=== PATIENT | male | born 1940 | race Caucasian/White ===

== ENCOUNTER 2020-10-05 16:36 | Inpatient (IN) | payer MEDICARE ==
[~2020-10-05] VITALS: Ht 175.3 cm; Wt 108.9 kg
--- NOTE | 2020-10-05 19:14 | NUR ---
ARRIVAL REPORT RECEIVED FROM [facility] OVER THE PHONE AND ONCE PATIENT ARRIVED. PT IS STABLE AT THIS TIME.
[2020-10-05] MEDS ORDERED: HEPARIN-D5W 20,000 UNIT/500 ML 500 ML IV SCH ×2 (20:30→23:00)
[2020-10-05] MEDS ORDERED: HEPARIN IV ONE ×2 (20:30→23:00)
[2020-10-05] MEDS ORDERED: TYLENOL PO PRN (20:30)
[2020-10-05] MEDS ORDERED: NITROLINGUAL TL PRN (20:30)
[2020-10-05] MEDS ORDERED: NORCO 5MG PO PRN (20:30)
--- NOTE | 2020-10-05 21:04 | DIREP ---
PROCEDURE:CHEST 1 VIEW COMPARISON:[facility], CR, XRAY CHEST SINGLE VW, 10/04/2020, 09:39 AM. INDICATIONS:SOB FINDINGS: LUNGS/PLEURA:Lordotic projection. No focal infiltrate or pleural effusion. CARDIAC:Prominent cardiac silhouette and normal pulmonary vascularity. MEDIASTINUM:Normal. BONES:Mild degenerative changes. OTHER:No additional findings. CONCLUSION:No acute cardiopulmonary process or significant change. Dictated by: Deborah Beverly MD on 10/05/2020 at 09:01 PM
--- NOTE | 2020-10-05 21:16 | PCM.HP ---
History of Present Illness Reason for Visit: Acute [place] History of Present Illness 80-year-old male with history of benign prostatic hypertrophy is being transferred from [facility] in [facility] for cardiac consultation and management. Patient presented to [facility] 2 days ago with weakness and low blood pressure. Patient was found to be uroseptic. Few days prior to presentation patient had a cystoscopy done. In the emergency room patient was found to have urinary tract infection. Start on IV antibiotic, Zosyn. The next day patient became very diaphoretic and short of breath, blood work patient had a troponin elevation to more than 4.0. Patient was given aspirin, Plavix and Lovenox. Requested transfer the patient to our medical facility for further cardiac work-up and management. Currently patient is feeling weak, tired and short of breath. Past Medical History Renal/: Benign Prostatic Enlarg. Past Surgical History: No pertinent hx Past Social History Smoke: No Alcohol: none Review of Systems Constitutional: Chills, Weakness Eyes: No: Pain, Vision change ENT: No: Ear pain, Ear discharge Respiratory: Shortness of breath; No: Cough, Dry Cardiovascular: No: Chest Pain, Palpitations Gastrointestinal: No: Nausea, Vomiting Genitourinary: Dysuria, Frequency Musculoskeletal: No: shoulder pain, arm pain Skin: No: Rash, Jaundice Neurological: No: Weakness, Incoordination Allergies: Coded Allergies: No Known Allergies (Unverified , 10/05/20) Exam Vital Signs Blood pressure 120/70, heart rate 80, respiratory rate 18, temperature 98.6 General Appearance: Alert, Oriented X3 HEENT: Atraumatic, PERRLA Respiratory: Other Cardiovascular: Regular rate, Normal S1, Normal S2 Abdominal: Normal bowel sounds, Soft, No tenderness Extremities: No clubbing, No cyanosis Skin: No lesions Neuro: Normal speech, Normal tone Psych/Mental Status: Mental status NL, Mood NL Assessment/Plan Assessment/Plan Problems: (1) NSTEMI (non-ST elevated myocardial infarction) ICD Code: I21.4 - Non-ST elevation (NSTEMI) myocardial infarction SNOMED: 96770071 (2) UTI (urinary tract infection) ICD Code: N39.0 - Urinary tract infection, site not specified SNOMED: 34039229 (3) SOB (shortness of breath) ICD Code: R06.02 - Shortness of breath SNOMED: 569828543 (4) BPH (benign prostatic hyperplasia) ICD Code: N40.0 - Benign prostatic hyperplasia without lower urinary tract symptoms SNOMED: 451953733 Plan Plan Admit Telemetry monitoring Investigator Cash Shortage consulted for evaluation further management 2D echo We will repeat troponin now, as per buffet waiter/waitress Check BNP Aspirin IV heparin drip IV antibiotic GI prophylaxis famotidine DVT prophylaxis Heparin Case discussed with patient, and patient family. PORSCHE REYNOLDS MD Oct 05, 2020 21:16
[2020-10-05 21:33] LABS: CALCIUM 8.4 mg/dL (8.4-10.5)
[2020-10-05 21:35] LABS: BASOPHIL # 0.1 10^3/uL (0.0-0.1); BASOPHIL % 0.5 % (0.0-0.2); EOSINOPHIL # 0.4 10^3/uL (0.0-0.2); EOSINOPHIL % 4.1 % (0.0-5.0); LYMPHOCYTES # 1.25 10^3/uL1 (1.0-4.8); LYMPHOCYTES % 13.4 % (24.0-44.0); MEAN CORP HGB 30.7 pg (26-34); MONOCYTES # 0.6 10^3/uL (0.3-0.8); MONOCYTES % 6.6 % (5.0-12.0); NEUTROPHIL # 7.1 10^3/uL (1.8-7.7); NEUTROPHILS % 75.4 % (41.0-85.0); PLATELET COUNT 138 10^3/uL (150-400); RED CELL DISTRIBUTION WIDTH 14.4 % (11.5-14.5)
--- NOTE | 2020-10-05 21:55 | NUR ---
HEPARIN INITIAL APPT 27.4 INITIATED HEPARIN AT 1000 UNITS/ 25 ML/HR. WITNESSED BY JUDITH LOJA.
[2020-10-05] MEDS: COLACE PO SCH (21:56)
[2020-10-05] MEDS: LIPITOR PO SCH (21:56)
[2020-10-05] MEDS ORDERED: NS 100ML 100 ML IV ONE (22:07)
[2020-10-05] MEDS ORDERED: NS 500ML 500 ML IV ONE (22:08)
--- NOTE | 2020-10-05 22:23 | NUR ---
STATUS CALLED FOR AN UPDATE ON THE PT, RECEIVED ORDERS FOR A Q4 TROPONIN AND TO NOTIFY HIM IF THE PT STARTS EXPERIENCING CHEST PAIN OR IF THE TROPONIN START TO TREND BACK UP. READ BACK AND VERIFIED.
[2020-10-05] MEDS: ZOSYN 3.375 GM 3.375 GM in NS 100ML 100 ML IV SCH (22:46)
[2020-10-06] VITALS (34 sets, daily range): BP systolic 80–183; BP diastolic 33–114
--- NOTE | 2020-10-06 00:34 | NUR ---
UPDATE NOTIFIED CHARGE NURSE PURVI WONG OF PATIENTS ELEVATED ST WAVE ON CARBON DIOXIDE OPERATOR.
--- NOTE | 2020-10-06 00:44 | NUR ---
STATUS NOTIFIED CHARGE NURSE Conchita WALKER RN AGAIN ABOUT PATIENTS ELEVATED ST WAVE ON THE BEAUTY SPECIALIST, CHARGE NURSE STATED THAT "IT IS NORMAL FOR HIM, HE HAS A HISTORY OF IT".
[2020-10-06] MEDS ORDERED: ALFU10TA4 PO (00:55)
--- NOTE | 2020-10-06 01:00 | PCM.EKG ---
[facility] Test Date: 2020-10-06 Test Time: 00:57:13 Pat Name: MARINA VALDES Department: Room: 331 A Gender: M Refractory Manager: TERESA : 1940 Requested By: PORSCHE REYNOLDS Order Number: [id number] Reading MD: Measurements Intervals [place] Rate: 55 P: 29 [place]: 166 QRS: 15 QRSD: 148 T: 43 QT: 439 QTc: 420 Interpretive Statements Sinus rhythm Right bundle branch block Inferior infarct, acute (RCA) Lateral leads are also involved Probable RV involvement, suggest recording right precordial leads Compared to ECG 10/05/2020 22:18:33 No significant changes Please click the below link to view image of tracing.
[2020-10-06] MEDS ORDERED: HEPARIN ONE (01:37)
[2020-10-06] MEDS ORDERED: SUBLIMAZE ONE (01:38)
[2020-10-06] MEDS ORDERED: VERSED ONE (01:38)
[2020-10-06] MEDS ORDERED: XYLOCAINE ONE (01:38)
--- NOTE | 2020-10-06 01:47 | NUR ---
STATUS PT TRANSPORTED OFF THE UNIT VIA BED TO RADIOLOGY RN.
[2020-10-06] MEDS ORDERED: NS 1000ML 1,000 ML ONE (02:06)
[2020-10-06] MEDS ORDERED: BENADRYL ONE (02:22)
[2020-10-06] MEDS ORDERED: SOLU-MEDROL ONE (02:27)
[2020-10-06] MEDS ORDERED: PEPCID ONE (02:38)
[2020-10-06] MEDS ORDERED: APRESOLINE ONE (02:39)
[2020-10-06] MEDS ORDERED: NARCAN ONE (02:41)
[2020-10-06] MEDS ORDERED: ROMAZICON IV ONE (02:42)
[2020-10-06] MEDS: ZOSYN 3.375 GM 3.375 GM in NS 100ML 100 ML IV SCH ×4 (03:30→22:30)
--- NOTE | 2020-10-06 04:10 | PCM.EKG ---
[facility] Test Date: 2020-10-06 Test Time: 04:07:36 Pat Name: MARINA VALDES Department: Room: 331 A Gender: M Sales Force Administrator: TERESA : 1940 Requested By: PORSCHE REYNOLDS Order Number: [id number] Reading MD: Measurements Intervals [place] Rate: 56 P: 48 [place]: 167 QRS: -19 QRSD: 154 T: 39 QT: 432 QTc: 417 Interpretive Statements Sinus rhythm IVCD, consider atypical RBBB Compared to ECG 10/06/2020 00:57:13 Myocardial infarct finding no longer present Please click the below link to view image of tracing.
--- NOTE | 2020-10-06 04:41 | CCRH ---
DATE OF SERVICE: 10/06/2020 DICTATOR NAME: YANELI ZAPATA DO INDICATION: Acute ST-elevation myocardial infarction. This is a 80-year-old male who was initially transferred to the hospital from an outside facility with an acute aas-YF-fxtkvlbyc myocardial infarction. Initial EKG on presentation revealed normal sinus rhythm with a right bundle branch block and nonspecific ST-T wave changes. ACS protocol was initiated. During the course of his hospital stay, he became progressively short of breath and a repeat ECG done showed dynamic EKG changes with ST elevations in the inferior leads with reciprocal ST depressions in the anteroseptal leads. A diagnosis of acute ST-elevation myocardial infarction was made and the patient was taken to the cardiac catheterization suite for emergent left heart catheterization. Informed consents were obtained. PROCEDURES PERFORMED: 1. 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 This is an 0.5 mm caliber vessel which is extremely small and unamendable to stenting or balloon angioplasty. 2. Selective coronary angiography. 3. Left ventriculography. 4. Hemostasis established using a 6-Tajik Angio-Seal. PROCEDURAL DETAILS: Access was obtained using a 4-Tajik micropuncture kit to cannulate the right common femoral artery. The 4-Tajik sheath was then upsized to a 6-Tajik regular short sheath. Diagnostic angiography was carried out using a José Miguel right guide to engage the RCA. The RCA itself was noted to be with mild luminal irregularities. It bifurcates distally to a very small caliber right posterior lateral artery and a very small caliber right posterior descending artery. Significant haziness was visualized in the very distal right posterior descending artery suggestive of an acute thrombus. The very distal RPDA is noted to be a 0.5 mm caliber vessel in its maximum diameter. This is an extremely small caliber vessel that is unamendable to stenting or balloon angioplasty. The proximal and mid segments of the RPDA were noted to be with mild luminal irregularities. The José Miguel right catheter was then exchanged for a José Miguel left diagnostic catheter, which was used to engage the left main. Angiography revealed that the left main was angiographically normal. It bifurcates into a left anterior descending artery and a left circumflex artery. The left anterior descending artery is noted to have mild luminal irregularities. It runs in the interventricular groove, wrapping around the apex to form a type 3 LAD. It gives off 3 diagonal branches that are noted to have mild luminal irregularities. The left circumflex artery is a codominant vessel with mild luminal irregularities. It gives off 4 obtuse marginal branches that are all noted to have mild luminal irregularities. The José Miguel left catheter was then taken out and exchanged for a pigtail catheter, which was used to cross the aortic valve into the left ventricle. Left ventriculography was performed. LVEF was noted to be 45-50% with inferior apical hypokinesis. LVEDP was noted to be 10. Upon pullback of the pigtail catheter, there was no gradient across the aortic valve. The pigtail catheter was then taken out and hemostasis was established using a 6-Tajik Angio-Seal. The patient left the laborer construction or leak gang in stable condition. There were no complications. IMPRESSION: 1. 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 This is unamendable to stenting or balloon angioplasty given the very small size of the vessel. Medical management is therefore recommended. 2. Selective coronary angiography. 3. Left ventriculography. 4. Left ventricular ejection fraction of 45-50% with inferior apical hypokinesis. 5. Left ventricular end-diastolic pressure of 10. 6. Hemostasis established using a 6-Tajik Angio-Seal. RECOMMENDATIONS: No coronary intervention is necessary at this time. Aggressive medication management is certainly recommended. He will be started on dual antiplatelet therapy as well as statin therapy. Heparin drip will be kept running for the next 10-12 hours. Heparin protocol has been initiated. A 2D echo will be obtained to further evaluate his left ventricular ejection fraction and structural integrity of his heart. No further cardiac invasive workup is necessary at this time. Tate JONES D.O. DR: DENIS DE PAZ: [id number] RECEIPT: [id number] EROS
[2020-10-06 06:10] LABS: BILIRUBIN,URINE NEGATIVE (NEGATIVE); UA COLOR YELLOW; UROBILINOGEN,URINE 0.2 E.U./dL (0.2)
[2020-10-06 06:29] LABS: BASOPHIL % 0.2 % (0.0-0.2); EOSINOPHIL # 0.1 10^3/uL (0.0-0.2); LYMPHOCYTES # 0.55 10^3/uL1 (1.0-4.8); LYMPHOCYTES % 5.7 % (24.0-44.0); MEAN CORP HGB 30.3 pg (26-34); MONOCYTES # 0.3 10^3/uL (0.3-0.8); MONOCYTES % 2.8 % (5.0-12.0); NEUTROPHIL # 8.7 10^3/uL (1.8-7.7); NEUTROPHILS % 90.3 % (41.0-85.0); PLATELET COUNT 148 10^3/uL (150-400); RED CELL DISTRIBUTION WIDTH 14.5 % (11.5-14.5)
[2020-10-06 06:47] LABS: CALCIUM 8.7 mg/dL (8.4-10.5); CARBON DIOXIDE 23.8 mmol/L (20.0-32)
[2020-10-06 07:11] LABS: LYMPHOCYTE 2 % (25-36); SEGMENTED NEUTROPHILS 94 % (31-76)
[2020-10-06 07:12] LABS: BASOPHIL 1 % (0-2); EOSINOPHIL 1 % (1-4); MONOCYTE 2 % (3-9)
--- NOTE | 2020-10-06 08:36 | PCM.EKG ---
[facility] Test Date: 2020-10-06 Test Time: 08:33:21 Pat Name: MARINA VALDES Department: Room: 331 A Gender: M Manager Activities: ED : 1940 Requested By: PORSCHE REYNOLDS Order Number: [id number] Reading MD: Measurements Intervals [place] Rate: 39 P: 54 [place]: 171 QRS: -26 QRSD: 152 T: 10 QT: 490 QTc: 395 Interpretive Statements Sinus bradycardia Right bundle branch block Compared to ECG 10/06/2020 04:07:36 Sinus rhythm no longer present Please click the below link to view image of tracing.
[2020-10-06] MEDS: COLACE PO SCH ×2 (09:00→20:54)
[2020-10-06] MEDS ORDERED: ASPIRIN EC PO SCH (09:00)
[2020-10-06] MEDS: ASPIRIN EC PO SCH (09:47)
[2020-10-06] MEDS: PEPCID IV SCH ×2 (09:47→20:54)
[2020-10-06] MEDS: PLAVIX PO SCH (09:47)
--- NOTE | 2020-10-06 10:15 | NUR ---
TRANSFER TO ICU PATIENT TRANSFERRED TO ICU TO MONITOR BRADYCARDIA PER DR. STILL ORDER. REPORT GIVEN TO ADRIANA LOJA. RELINQUISHED CARE OF PATIENT AT THIS TIME.
--- NOTE | 2020-10-06 11:54 | PRM.PN ---
Subjective Subjective Date: Oct 06, 2020 Time: 09:00 Subjective Patient appears lethargic, had heart cath earlier this morning, apparently patient was more lethargic and was given Narcan as per RN. Patient heart rate is bradycardic with heart rate as low as 38. RN sent EKG to supervisor park workers. To review. Patient skin is cool. Will transfer the patient to ICU for close monitoring. VTE VTE Risk Total Score: 3 VTE Risk Score VTE Risk: Score 0-1 = Low Risk (Aggressive mobilization; early ambulation; no VTE prophylaxis required) Score 2: Moderate Risk (Intermittent/Pneumatic Compression Device OR Lovenox/Heparin/Coumadin) Score 3-4: High Risk (Intermittent/Pneumatic Compression Device AND Lovenox/Heparin/Coumadin) Score > or =5: Highest Risk (Intermittent/Pneumatic Compression Device AND Lovenox/Heparin/Coumadin) Antico:Hep/LMWH/Coum/Xarelto: Yes Mechanical device ordered: Yes Review of Systems Constitutional: Chills, Weakness Eyes: No: Pain, Vision change ENT: No: Ear pain, Ear discharge Respiratory: Shortness of breath; No: Cough, Dry Cardiovascular: No: Chest Pain, Palpitations Gastrointestinal: No: Nausea, Vomiting Genitourinary: Dysuria, Frequency Musculoskeletal: No: shoulder pain, arm pain Skin: No: Rash, Jaundice Neurological: No: Weakness, Incoordination Allergies: Coded Allergies: No Known Allergies (Unverified , 10/05/20) Scheduled Alfuzosin Hcl (Alfuzosin Hcl), 2 TAB PO DAILY, (Reported) Objective Vitals and I/O Vital Sign - Last 24 Hours 10/05/20 10/05/20 10/06/20 10/06/20 22:00 23:40 00:20 09:00 Pulse 64 38 Resp 18 18 Pulse Ox 95 98 O2 Delivery Nasal Cannula Nasal Cannula Nasal Cannula Nasal Cannula O2 Flow Rate 2.00 2.00 2.00 FiO2 28 10/06/20 10/06/20 10/06/20 10/06/20 10:30 10:40 10:45 11:00 Pulse 42 40 42 Resp 22 18 17 B/P (MAP) 161/90 (113) 159/83 (108) 169/94 (119) Pulse Ox 100 100 98 O2 Delivery Room Air O2 Flow Rate 3.00 10/06/20 11:15 Temp 97.8 Pulse 40 Resp 15 B/P (MAP) 178/96 (123) Pulse Ox 99 General: Other (Lethargic) HEENT: Atraumatic, PERRLA Lungs: Other Heart: Other (Bradycardic) Abdomen: Normal bowel sounds, Soft, No tenderness Extremities: No clubbing, No cyanosis Neuro: Normal speech, Normal tone Psych/Mental Status: Mental status NL, Mood NL All Results(Lab/Rad) Laboratory Tests Test 10/05/20 20:44 10/06/20 01:15 10/06/20 05:30 10/06/20 05:52 White Blood Count 9.4 10^3/uL 9.7 10^3/uL Red Blood Count 3.68 10^6/uL 3.80 10^6/uL Hemoglobin 11.3 g/dL 11.5 g/dL Hematocrit 34.2 % 35.1 % Mean Corpuscular Volume 92.9 fL 92.4 fL Mean Corpuscular Hemoglobin 30.7 pg 30.3 pg Mean Corpuscular Hemoglobin Concent 33.0 g/dL 32.8 g/dL Red Cell Distribution Width 14.4 % 14.5 % Platelet Count 138 10^3/uL 148 10^3/uL Mean Platelet Volume 11.4 fL 11.5 fL Neutrophils (%) (Auto) 75.4 % 90.3 % Lymphocytes (%) (Auto) 13.4 % 5.7 % Monocytes (%) (Auto) 6.6 % 2.8 % Neutrophils # (Auto) 7.1 10^3/uL 8.7 10^3/uL Lymphocytes # (Auto) 1.25 10^3/uL1 0.55 10^3/uL1 Monocytes # (Auto) 0.6 10^3/uL 0.3 10^3/uL Absolute Immature Granulocyte (auto 0.06 10^3 u/L 0.05 10^3 u/L Absolute Eosinophils (auto) 0.4 10^3/uL 0.1 10^3/uL Immature Granulocytes % 0.60 % 0.50 % Eosinophils % 4.1 % 1.0 % Basophils % 0.5 % 0.2 % Basophils # 0.1 10^3/uL 0.0 10^3/uL Prothrombin Time 10.7 SEC Prothrombin Time INR (Non-Therap) 1.0 Activated Partial Thromboplast Time 27.4 SEC 35.8 SEC Sodium Level 140 mmol/L 141 mmol/L Potassium Level 4.1 mmol/L 3.9 mmol/L Chloride Level 108.0 mmol/L 108.0 mmol/L Carbon Dioxide Level 24.0 mmol/L 23.8 mmol/L Anion Gap 12.1 13.1 Blood Urea Nitrogen 23 mg/dL 21 mg/dL Creatinine 1.29 mg/dL 1.19 mg/dL Estimated GFR () 65.2 71.5 Est GFR (CKD-EPI)(Non-Afr [place] Citizen) 53.9 59.1 BUN/Creatinine Ratio 17.0 17.0 Glucose Level 124 mg/dL 139 mg/dL Calcium Level 8.4 mg/dL 8.7 mg/dL Total Bilirubin 0.6 mg/dL 0.6 mg/dL Aspartate Amino Transf (AST/SGOT) 43 U/L 38 U/L Alanine Aminotransferase (ALT/SGPT) 34 U/L 36 U/L Alkaline Phosphatase 74 U/L 74 U/L Troponin I 1.63 ng/mL 1.33 ng/mL Pro-B-Type Natriuretic Peptide 1424 pg/mL Total Protein 6.2 g/dL 6.4 g/dL Albumin 2.9 g/dL 3.0 g/dL Globulin 3.3 3.4 Albumin/Globulin Ratio 0.878 0.882 Total Creatine Kinase 195 U/L 191 U/L Creatine Kinase MB 1.6 ng/mL 1.7 ng/mL Urine Collection Type RANDOM Urine Color YELLOW Urine Appearance CLEAR Urine Bilirubin NEGATIVE Urine Ketones NEGATIVE Urine Specific [place] 1.010 Urine pH 6.5 Urine Protein NEGATIVE Urine Urobilinogen 0.2 E.U./dL Urine Nitrate NEGATIVE Urine Leukocyte Esterase MODERATE Urine Glucose (Auto)(UA) NEGATIVE Urine Blood MODERATE Urine RBC 10-25 RBC/HPF Urine WBC 10-25 WBC/HPF Urine Bacteria FEW Test 10/06/20 06:37 10/06/20 08:05 Segmented Neutrophils 94 % Lymphocytes 2 % Monocytes 2 % Absolute Eosinophils (Manual) 1 % Basophils 1 % Platelet Estimate SLIGHTLY DECREASED Platelet Morphology NORMAL Activated Partial Thromboplast Time 30.8 SEC Total Creatine Kinase 169 U/L Creatine Kinase MB 1.5 ng/mL Current Medications Medications (Trade) Dose Ordered Sig/Jhon Route PRN Reason Start Time Stop Time Status Last Admin Dose Admin Heparin Sodium (Porcine) (Heparin) 5,000 unit OT ONCE IV 10/05/20 20:30 10/05/20 20:48 DC 10/05/20 21:56 Heparin Sodium/ Dextrose 500 ml @ 0 mls/hr TITRATE IV 10/05/20 20:30 10/05/20 23:35 DC 10/05/20 21:55 Nitroglycerin (Nitrolingual) 1 sprays Q5M PRN TL CHEST PAIN 10/05/20 20:30 11/04/20 20:29 Aspirin (Aspirin Ec) 325 mg DAILY PO 10/06/20 09:00 10/06/20 03:33 DC Atorvastatin Calcium (Lipitor) 80 mg HS PO 10/05/20 21:00 11/04/20 20:59 10/05/20 21:56 Docusate Sodium (Colace) 100 mg BID PO 10/05/20 21:00 11/04/20 20:59 Acetaminophen (Tylenol) 1,000 mg Q6H PRN PO PAIN 1 - 3 10/05/20 20:30 11/04/20 20:29 Acetaminophen/ Hydrocodone Bitart ([place] 5mg) 1 ea Q6 PRN PO PAIN 4 - 6 10/05/20 20:30 11/04/20 20:29 Atropine Sulfate (Atropine Sulfate) 1 mg PRN PRN IV HR<45/min 10/05/20 20:30 11/04/20 20:29 Piperacillin Sod/ Tazobactam Sod 3.375 gm/Sodium Chloride 100 ml @ 100 mls/hr Q6H IV 10/05/20 21:30 11/04/20 21:29 10/06/20 09:30 Famotidine (Pepcid) 20 mg BID IV 10/06/20 09:00 11/05/20 08:59 10/06/20 09:47 Sodium Chloride 100 ml @ ud STK-MED ONCE IV 10/05/20 22:07 10/05/20 22:07 DC Sodium Chloride 500 ml @ ud STK-MED ONCE IV 10/05/20 22:08 10/05/20 22:08 DC Heparin Sodium (Porcine) (Heparin) 5,000 unit OT ONCE IV 10/05/20 23:00 10/05/20 23:34 DC Heparin Sodium/ Dextrose 500 ml @ 0 mls/hr TITRATE IV 10/05/20 23:00 11/04/20 22:59 Heparin Sodium/ Sodium Chloride 1,500 ml @ ud STK-MED ONCE IV 10/06/20 01:37 10/06/20 01:38 DC Heparin Sodium (Porcine) (Heparin) 5,000 unit STK-MED ONCE .ROUTE 10/06/20 01:37 10/06/20 01:38 DC Fentanyl Citrate (Sublimaze) 50 mcg STK-MED ONCE .ROUTE 10/06/20 01:38 10/06/20 01:38 DC Lidocaine HCl (Xylocaine) 20 mg STK-MED ONCE .ROUTE 10/06/20 01:38 10/06/20 01:38 DC Sodium Chloride 1,000 ml @ ud STK-MED ONCE .ROUTE 10/06/20 02:06 10/06/20 02:06 DC Diphenhydramine HCl (Benadryl) 50 mg STK-MED ONCE .ROUTE 10/06/20 02:22 10/06/20 02:23 DC Methylprednisolone Sodium Succinate (Solu-Medrol) 125 mg STK-MED ONCE .ROUTE 10/06/20 02:27 10/06/20 02:27 DC Famotidine (Pepcid) 20 mg STK-MED ONCE .ROUTE 10/06/20 02:38 10/06/20 02:38 DC Hydralazine HCl (Apresoline) 20 mg STK-MED ONCE .ROUTE 10/06/20 02:39 10/06/20 02:40 DC Naloxone HCl (Narcan) 0.4 mg STK-MED ONCE .ROUTE 10/06/20 02:41 10/06/20 02:41 DC Flumazenil (Romazicon) 0.1 mg STK-MED ONCE IV 10/06/20 02:42 10/06/20 02:42 DC Sodium Chloride 1,000 ml @ 30 mls/hr Q24H IV 10/06/20 03:30 11/05/20 03:29 Clopidogrel Bisulfate (Plavix) 75 mg DAILY PO 10/06/20 09:00 11/05/20 08:59 10/06/20 09:47 Aspirin (Aspirin Ec) 81 mg DAILY PO 10/06/20 09:00 11/05/20 08:59 10/06/20 09:47 Assessment/Plan Assessment/Plan Problems: (1) Bradycardia ICD Code: R00.1 - Bradycardia, unspecified SNOMED: 38397045 (2) NSTEMI (non-ST elevated myocardial infarction) ICD Code: I21.4 - Non-ST elevation (NSTEMI) myocardial infarction SNOMED: 82336692 (3) UTI (urinary tract infection) ICD Code: N39.0 - Urinary tract infection, site not specified SNOMED: 79312216 (4) BPH (benign prostatic hyperplasia) ICD Code: N40.0 - Benign prostatic hyperplasia without lower urinary tract symptoms SNOMED: 730624035 Plan Patient had heart cath this morning, assessment and recommendation as per supervisor park workers 1. 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 This is unamendable to stenting or balloon angioplasty given the very small size of the vessel. Medical management is therefore recommended. 2. Selective coronary angiography. 3. Left ventriculography. 4. Left ventricular ejection fraction of 45-50% with inferior apical hypokinesis. 5. Left ventricular end-diastolic pressure of 10. 6. Hemostasis established using a 6-Kinyarwanda Angio-Seal. RECOMMENDATIONS: No coronary intervention is necessary at this time. Aggressive medication management is certainly recommended. He will be started on dual antiplatelet therapy as well as statin therapy. Heparin drip will be kept running for the next 10-12 hours. Heparin protocol has been initiated. A 2D echo will be obtained to further evaluate his left ventricular ejection fraction and structural integrity of his heart. No further cardiac invasive workup is necessary at this time. Patient is lethargic post heart cath, bradycardic with heart rates in the high 30s. We will transfer the patient to ICU for close monitoring. Continue IV antibiotic, awaiting culture results PORSCHE REYNOLDS MD Oct 06, 2020 11:53
--- NOTE | 2020-10-06 12:19 | PCM.EKG ---
[facility] Test Date: 2020-10-06 Test Time: 12:15:01 Pat Name: MARINA VALDES Department: Room: ICU4 Gender: M [employer] Functional Analyst: ED : 1940 Requested By: PORSCHE REYNOLDS Order Number: [id number] Reading MD: Measurements Intervals [place] Rate: 41 P: 59 [place]: 93 QRS: -25 QRSD: 148 T: 21 QT: 494 QTc: 408 Interpretive Statements Sinus bradycardia Short [place] interval Right bundle branch block Compared to ECG 10/06/2020 08:33:21 Short [place] interval now present Please click the below link to view image of tracing.
--- NOTE | 2020-10-06 13:00 | NUR ---
NOTIFIED DR. ZAPATA OF HR 41 AND EKG NEW ORDERS RECEIVED FOR ATROPINE 0.5MG IV STAT. CONTINUE HEPARIN DRIP UNTIL 1800. RBTO.
[2020-10-06] MEDS ORDERED: ATROPINE SULFATE IV STA ×2 (13:20→15:36)
--- NOTE | 2020-10-06 15:09 | NUR ---
NOTIFIED DR. ZAPATA OF HR 43-45 AND BP 169/89 NEW ORDERS RECEIVED FOR ATROPINE 0.5 MG IV STAT AND HYDRALAZINE 20MG IV STAT. RBTO.
--- NOTE | 2020-10-06 15:13 | PCM.EKG ---
[facility] Test Date: 2020-10-05 Test Time: 22:18:33 Pat Name: MARINA VALDES Department: Room: ICU4 A Gender: M Hasher Machine Operator: TERESA : 1940 Requested By: YANELI ZAPATA Order Number: [id number] Reading MD: Measurements Intervals [place] Rate: 55 P: 39 [place]: 167 QRS: -31 QRSD: 145 T: 13 QT: 421 QTc: 403 Interpretive Statements Sinus rhythm Right bundle branch block Inferior infarct, old No previous ECG available for comparison Please click the below link to view image of tracing.
[2020-10-06] MEDS ORDERED: APRESOLINE IV STA (15:36)
[2020-10-06] MEDS: NS 1000ML 1,000 ML IV SCH (16:52)
[2020-10-06] MEDS: ATROPINE SULFATE IV PRN (19:15)
--- NOTE | 2020-10-06 20:31 | CNH ---
DATE OF CONSULTATION: 10/06/2020 DICTATOR NAME: YANELI ZAPATA DO REASON FOR CONSULTATION: Acute non-ST elevation myocardial infarction. HISTORY OF PRESENT ILLNESS: This is a 80-year-old male who was transferred from [facility] in [place], [place] with an acute non-ST elevation myocardial infarction. The patient apparently presented at [facility] 2 days ago with generalized weakness and hypotension. He was noted to be uroseptic and was treated with antibiotics and subsequently underwent a cystoscopy. He became progressively short of breath that warranted cardiac workup at the outside hospital with a troponin leak of 4.0. In view of these, he was transferred over to [facility] for cardiac evaluation and management. He denies any chest pain. Upon presentation to [facility], EKG shows normal sinus rhythm with a right bundle branch block and nonspecific ST-T wave changes. Initial troponin was 1.63. A consultation was placed to cardiology for evaluation. PAST MEDICAL HISTORY: Significant for BPH. PAST SURGICAL HISTORY: Recent cystoscopy done at [facility]. ALLERGIES: He has no known drug allergies. MEDICATIONS: He does not take any medications at home. SOCIAL HISTORY: He denies tobacco use, denies illicit drug use, denies alcohol use. FAMILY HISTORY: He denies any family history of premature coronary artery disease or sudden cardiac . REVIEW OF SYSTEMS: As per HPI and as per previous records. All systems are reviewed and negative for interval change. PHYSICAL EXAMINATION: VITAL SIGNS: Pulse is 64, respiratory rate is 18, pulse oximetry is 95% on 2 liters. GENERAL: He is in no apparent distress, alert and oriented x3. HEENT: Normocephalic, atraumatic. Extraocular muscles intact. Pupils equally round, reactive to light and accommodation. CARDIAC: S1, S2. No gallops, murmurs, rubs, or clicks. LUNGS: Clear to auscultation bilaterally. No wheezing, rhonchi or rales. ABDOMEN: Soft, nontender, nondistended. Positive bowel sounds in all 4 quadrants. EXTREMITIES: No cyanosis, no clubbing, no edema, +2 pedal pulses palpable bilaterally. NEUROLOGIC: No neurological deficits. Sensation is intact. IMPRESSION: 1. Acute non-ST elevation myocardial infarction. 2. Recent diagnosis of urosepsis at an outside hospital. 3. Shortness of breath. 4. Benign prostatic hypertrophy. RECOMMENDATIONS: This is a 80-year-old male who was transferred from [facility] to [facility] with a diagnosis of acute non-ST elevation myocardial infarction. He initially presented to the outside hospital with generalized weakness and hypotension and was noted to have urosepsis, which was subsequently treated with antibiotics. He became short of breath and cardiac workup was initiated. Troponin at the outside hospital was noted to be 4.0 and so he was transferred over to [facility] for evaluation by cardiology. Repeat troponin here at [facility] was noted to be 1.63. EKG shows normal sinus rhythm with a right bundle branch block and nonspecific ST-T wave changes. The patient denies any angina. He only complains of occasional shortness of breath. I would recommend to trend his troponins q. 4 hours with EKGs. He will be started on heparin drip with a loading dose as well as given loading dose of aspirin 325 mg. A 2D echo will be ordered to evaluate his left ventricular ejection fraction and structural integrity of his heart. Eventually, he will be taken to the cardiac catheterization suite for left heart catheterization to rule out obstructive CAD. Continue to trend troponins. Further recommendations will be made based on his overall clinical course. Tate JONES D.O. DR: KASI TIPayam: [id number] RECEIPT: [id number]
--- NOTE | 2020-10-06 20:53 | PCM.EKG ---
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
[2020-10-06] MEDS: LIPITOR PO SCH (20:54)
--- NOTE | 2020-10-06 21:48 | PRM.PN ---
Subjective Subjective Date: Oct 06, 2020 Time: 21:37 Subjective Patient resting comfortably No chest pain, SOB or palpitations EKG: NSR with RBBB Review of Systems Constitutional: Chills, Weakness Eyes: No: Pain, Vision change ENT: No: Ear pain, Ear discharge Respiratory: No: Cough, Dry, Shortness of breath, SOB with excertion, Wheezing, Hemoptysis, Pleuritic Pain, Sputum, Wheezing, Other Cardiovascular: No: Chest Pain, Palpitations Gastrointestinal: No: Nausea, Vomiting Genitourinary: Dysuria, Frequency Musculoskeletal: No: shoulder pain, arm pain Skin: No: Rash, Jaundice Neurological: No: Weakness, Incoordination Allergies: Coded Allergies: No Known Allergies (Unverified , 10/05/20) Scheduled Alfuzosin Hcl (Alfuzosin Hcl), 2 TAB PO DAILY, (Reported) Objective Vitals and I/O Vital Sign - Last 24 Hours 10/05/20 10/05/20 10/06/20 10/06/20 22:00 23:40 00:20 09:00 Pulse 64 38 Resp 18 18 Pulse Ox 95 98 O2 Delivery Nasal Cannula Nasal Cannula Nasal Cannula Nasal Cannula O2 Flow Rate 2.00 2.00 2.00 FiO2 28 10/06/20 10/06/20 10/06/20 10/06/20 10:30 10:40 10:45 11:00 Pulse 42 40 42 Resp 22 18 17 B/P (MAP) 161/90 (113) 159/83 (108) 169/94 (119) Pulse Ox 100 100 98 O2 Delivery Room Air O2 Flow Rate 3.00 10/06/20 10/06/20 10/06/20 10/06/20 11:15 12:30 12:45 13:09 Temp 97.8 Pulse 40 33 40 44 Resp 15 20 20 21 B/P (MAP) 178/96 (123) 168/82 (110) 150/84 (106) 124/63 (83) Pulse Ox 99 99 99 97 10/06/20 10/06/20 10/06/20 10/06/20 13:17 13:30 13:45 14:04 Pulse 45 37 46 47 Resp 17 19 18 19 B/P (MAP) 129/91 (104) 179/114 (135) 159/88 (111) Pulse Ox 98 98 96 96 10/06/20 10/06/20 10/06/20 10/06/20 14:15 14:30 14:45 15:01 B/P (MAP) 174/80 (111) 178/99 (125) 179/72 (107) 169/89 (115) Pulse Ox 97 95 98 99 10/06/20 10/06/20 10/06/20 10/06/20 15:36 15:46 16:00 16:01 Pulse 42 41 57 Resp 16 20 B/P (MAP) 183/103 183/101 (128) 138/75 (96) Pulse Ox 96 97 O2 Delivery Room Air O2 Flow Rate 3.00 10/06/20 10/06/20 10/06/20 10/06/20 16:15 16:16 16:30 16:33 Pulse 56 55 53 Resp 20 21 15 B/P (MAP) 128/75 (92) 123/66 (85) Pulse Ox 97 97 97 99 10/06/20 10/06/20 10/06/20 10/06/20 16:47 17:01 17:17 17:46 Temp 98.2 Pulse 50 48 61 44 Resp 18 20 24 23 B/P (MAP) 131/50 (77) 105/51 (69) Pulse Ox 98 97 95 98 10/06/20 10/06/20 10/06/20 10/06/20 18:00 18:16 18:17 18:24 Pulse 48 47 42 45 Resp 23 20 18 24 B/P (MAP) 108/42 (64) 95/46 (62) 95/44 (61) Pulse Ox 97 98 98 98 O2 Delivery Nasal Cannula O2 Flow Rate 2.00 FiO2 28 General: Alert, Oriented X3, Other (Lethargic) HEENT: Atraumatic, PERRLA Neck: Supple Lungs: Clear to auscultation, Other Heart: Regular rate, Normal S1, Normal S2, Other (Bradycardic) Abdomen: Normal bowel sounds, Soft, No tenderness Extremities: No clubbing, No cyanosis Skin: No rashes Neuro: Normal speech, Normal tone Psych/Mental Status: Mental status NL, Mood NL All Results(Lab/Rad) Laboratory Tests Test 10/05/20 20:44 10/06/20 01:15 10/06/20 05:30 10/06/20 05:52 White Blood Count 9.4 10^3/uL 9.7 10^3/uL Red Blood Count 3.68 10^6/uL 3.80 10^6/uL Hemoglobin 11.3 g/dL 11.5 g/dL Hematocrit 34.2 % 35.1 % Mean Corpuscular Volume 92.9 fL 92.4 fL Mean Corpuscular Hemoglobin 30.7 pg 30.3 pg Mean Corpuscular Hemoglobin Concent 33.0 g/dL 32.8 g/dL Red Cell Distribution Width 14.4 % 14.5 % Platelet Count 138 10^3/uL 148 10^3/uL Mean Platelet Volume 11.4 fL 11.5 fL Neutrophils (%) (Auto) 75.4 % 90.3 % Lymphocytes (%) (Auto) 13.4 % 5.7 % Monocytes (%) (Auto) 6.6 % 2.8 % Neutrophils # (Auto) 7.1 10^3/uL 8.7 10^3/uL Lymphocytes # (Auto) 1.25 10^3/uL1 0.55 10^3/uL1 Monocytes # (Auto) 0.6 10^3/uL 0.3 10^3/uL Absolute Immature Granulocyte (auto 0.06 10^3 u/L 0.05 10^3 u/L Absolute Eosinophils (auto) 0.4 10^3/uL 0.1 10^3/uL Immature Granulocytes % 0.60 % 0.50 % Eosinophils % 4.1 % 1.0 % Basophils % 0.5 % 0.2 % Basophils # 0.1 10^3/uL 0.0 10^3/uL Prothrombin Time 10.7 SEC Prothrombin Time INR (Non-Therap) 1.0 Activated Partial Thromboplast Time 27.4 SEC 35.8 SEC Sodium Level 140 mmol/L 141 mmol/L Potassium Level 4.1 mmol/L 3.9 mmol/L Chloride Level 108.0 mmol/L 108.0 mmol/L Carbon Dioxide Level 24.0 mmol/L 23.8 mmol/L Anion Gap 12.1 13.1 Blood Urea Nitrogen 23 mg/dL 21 mg/dL Creatinine 1.29 mg/dL 1.19 mg/dL Estimated GFR () 65.2 71.5 Est GFR (CKD-EPI)(Non-Afr [place]) 53.9 59.1 BUN/Creatinine Ratio 17.0 17.0 Glucose Level 124 mg/dL 139 mg/dL Calcium Level 8.4 mg/dL 8.7 mg/dL Total Bilirubin 0.6 mg/dL 0.6 mg/dL Aspartate Amino Transf (AST/SGOT) 43 U/L 38 U/L Alanine Aminotransferase (ALT/SGPT) 34 U/L 36 U/L Alkaline Phosphatase 74 U/L 74 U/L Troponin I 1.63 ng/mL 1.33 ng/mL Pro-B-Type Natriuretic Peptide 1424 pg/mL Total Protein 6.2 g/dL 6.4 g/dL Albumin 2.9 g/dL 3.0 g/dL Globulin 3.3 3.4 Albumin/Globulin Ratio 0.878 0.882 Total Creatine Kinase 195 U/L 191 U/L Creatine Kinase MB 1.6 ng/mL 1.7 ng/mL Urine Collection Type RANDOM Urine Color YELLOW Urine Appearance CLEAR Urine Bilirubin NEGATIVE Urine Ketones NEGATIVE Urine Specific [place] 1.010 Urine pH 6.5 Urine Protein NEGATIVE Urine Urobilinogen 0.2 E.U./dL Urine Nitrate NEGATIVE Urine Leukocyte Esterase MODERATE Urine Glucose (Auto)(UA) NEGATIVE Urine Blood MODERATE Urine RBC 10-25 RBC/HPF Urine WBC 10-25 WBC/HPF Urine Bacteria FEW Test 10/06/20 06:37 10/06/20 08:05 Segmented Neutrophils 94 % Lymphocytes 2 % Monocytes 2 % Absolute Eosinophils (Manual) 1 % Basophils 1 % Platelet Estimate SLIGHTLY DECREASED Platelet Morphology NORMAL Activated Partial Thromboplast Time 30.8 SEC Total Creatine Kinase 169 U/L Creatine Kinase MB 1.5 ng/mL Current Medications Medications (Trade) Dose Ordered Sig/Jhon Route PRN Reason Start Time Stop Time Status Last Admin Dose Admin Heparin Sodium (Porcine) (Heparin) 5,000 unit OT ONCE IV 10/05/20 20:30 10/05/20 20:48 DC 10/05/20 21:56 Heparin Sodium/ Dextrose 500 ml @ 0 mls/hr TITRATE IV 10/05/20 20:30 10/05/20 23:35 DC 10/05/20 21:55 Nitroglycerin (Nitrolingual) 1 sprays Q5M PRN TL CHEST PAIN 10/05/20 20:30 11/04/20 20:29 Aspirin (Aspirin Ec) 325 mg DAILY PO 10/06/20 09:00 10/06/20 03:33 DC Atorvastatin Calcium (Lipitor) 80 mg HS PO 10/05/20 21:00 11/04/20 20:59 10/05/20 21:56 Docusate Sodium (Colace) 100 mg BID PO 10/05/20 21:00 11/04/20 20:59 Acetaminophen (Tylenol) 1,000 mg Q6H PRN PO PAIN 1 - 3 10/05/20 20:30 11/04/20 20:29 Acetaminophen/ Hydrocodone Bitart ([place] 5mg) 1 ea Q6 PRN PO PAIN 4 - 6 10/05/20 20:30 11/04/20 20:29 Atropine Sulfate (Atropine Sulfate) 1 mg PRN PRN IV HR<45/min 10/05/20 20:30 11/04/20 20:29 Piperacillin Sod/ Tazobactam Sod 3.375 gm/Sodium Chloride 100 ml @ 100 mls/hr Q6H IV 10/05/20 21:30 11/04/20 21:29 10/06/20 09:30 Famotidine (Pepcid) 20 mg BID IV 10/06/20 09:00 11/05/20 08:59 10/06/20 09:47 Sodium Chloride 100 ml @ ud STK-MED ONCE IV 10/05/20 22:07 10/05/20 22:07 DC Sodium Chloride 500 ml @ ud STK-MED ONCE IV 10/05/20 22:08 10/05/20 22:08 DC Heparin Sodium (Porcine) (Heparin) 5,000 unit OT ONCE IV 10/05/20 23:00 10/05/20 23:34 DC Heparin Sodium/ Dextrose 500 ml @ 0 mls/hr TITRATE IV 10/05/20 23:00 11/04/20 22:59 Heparin Sodium/ Sodium Chloride 1,500 ml @ ud STK-MED ONCE IV 10/06/20 01:37 10/06/20 01:38 DC Heparin Sodium (Porcine) (Heparin) 5,000 unit STK-MED ONCE .ROUTE 10/06/20 01:37 10/06/20 01:38 DC Fentanyl Citrate (Sublimaze) 50 mcg STK-MED ONCE .ROUTE 10/06/20 01:38 10/06/20 01:38 DC Lidocaine HCl (Xylocaine) 20 mg STK-MED ONCE .ROUTE 10/06/20 01:38 10/06/20 01:38 DC Sodium Chloride 1,000 ml @ ud STK-MED ONCE .ROUTE 10/06/20 02:06 10/06/20 02:06 DC Diphenhydramine HCl (Benadryl) 50 mg STK-MED ONCE .ROUTE 10/06/20 02:22 10/06/20 02:23 DC Methylprednisolone Sodium Succinate (Solu-Medrol) 125 mg STK-MED ONCE .ROUTE 10/06/20 02:27 10/06/20 02:27 DC Famotidine (Pepcid) 20 mg STK-MED ONCE .ROUTE 10/06/20 02:38 10/06/20 02:38 DC Hydralazine HCl (Apresoline) 20 mg STK-MED ONCE .ROUTE 10/06/20 02:39 10/06/20 02:40 DC Naloxone HCl (Narcan) 0.4 mg STK-MED ONCE .ROUTE 10/06/20 02:41 10/06/20 02:41 DC Flumazenil (Romazicon) 0.1 mg STK-MED ONCE IV 10/06/20 02:42 10/06/20 02:42 DC Sodium Chloride 1,000 ml @ 30 mls/hr Q24H IV 10/06/20 03:30 11/05/20 03:29 Clopidogrel Bisulfate (Plavix) 75 mg DAILY PO 10/06/20 09:00 11/05/20 08:59 10/06/20 09:47 Aspirin (Aspirin Ec) 81 mg DAILY PO 10/06/20 09:00 11/05/20 08:59 10/06/20 09:47 Assessment/Plan Assessment/Plan Assessment/Plan 1. Acute ST elevation myocardial infarction. 2. Recent diagnosis of urosepsis at an outside hospital. 3. Acute UTI with positive leucocyte esterase on UA--On Antibiotics per hospitalist. 4. Benign prostatic hypertrophy. 5. Asymptomatic Bradycardia-Baseline HR 50's-60's Plan C done yesterday: 1. 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 This is unamendable to stenting or balloon angioplasty given the very small size of the vessel. Medical management is therefore recommended. 2. Selective coronary angiography. 3. Left ventriculography. 4. Left ventricular ejection fraction of 45-50% with inferior apical hypokinesis. 5. Left ventricular end-diastolic pressure of 10. 6. Hemostasis established using a 6-Pashto Angio-Seal. Continue DAPT/statin EKG done tonight: NSR with HR 67bpm, RBBB Patient's HR typically runs in the 50's-60's at his baseline Heparin gtt d/c'ed. LVEF 45-50% on echo Severe OK--will be addressed in the outpt setting. Active UTI--On antibiotics per hospitalist team Medical mgt from a cardiac standpoint-Scripts for DAPT/Statin left in chart. Avoid BB and CCB due to low running HR. No further cardiac w/up is necessary at this time Stable for d/c from a cardiac standpoint with outpt follow up with me in 2-3 weeks. Will sign off. YANELI ZAPATA DO Oct 06, 2020 21:48
[2020-10-06 21:55] LABS: BASOPHIL % 0.1 % (0.0-0.2); LYMPHOCYTES # 0.74 10^3/uL1 (1.0-4.8); LYMPHOCYTES % 7.1 % (24.0-44.0); MEAN CORP HGB 29.4 pg (26-34); MONOCYTES # 0.8 10^3/uL (0.3-0.8); NEUTROPHIL # 8.7 10^3/uL (1.8-7.7); NEUTROPHILS % 83.8 % (41.0-85.0); PLATELET COUNT 164 10^3/uL (150-400); RED CELL DISTRIBUTION WIDTH 14.4 % (11.5-14.5)
--- NOTE | 2020-10-06 23:01 | NUR ---
PT STATUS B/P NOTIFIED DR ZAPATA AT THIS TIME, WAS TOLD TO NOTIFY HOSPITALIST DR MORRELL. NOTIFIED BY TELEPHONE AT THIS TIME, NO ANSWER, FOLLOW UP MESSAGE WAS SENT VIA TEXT WITH NO REPLY.
[2020-10-06] MEDS ORDERED: NS 500ML 500 ML IV STA (23:18)
--- NOTE | 2020-10-06 23:22 | NUR ---
DR MORRELL CALLED DR MORRELL A SECOND TIME @2504 PT HYPOTENSIVE @ 80/40. REC TELEPHONE ORDER OF 500ML NS BOLUS FOR HYPOTENSION REASSESS ONCE COMPLETE, IF DIASTOLIC <55, REPEAT.
[2020-10-07] VITALS (66 sets, daily range): BP systolic 43–250; BP diastolic 25–168
[2020-10-07] MEDS ORDERED: NS 500ML 500 ML IV STA (00:15)
[2020-10-07] MEDS ORDERED: DIPRIVAN 100 ML IV ONE (00:42)
--- NOTE | 2020-10-07 01:07 | NUR ---
PT STATUS CALLED DR MORRELL TO NOTIFY REGARDING PTS HEART RATE DROPPING TO 30'S, THIS NURSE WAS INSTRUCTED TO ADMINISTER 1MG/1OML IV ATROPINE. ORDERS CARRIED OUT AT THIS TIME.
[2020-10-07] MEDS: ATROPINE SULFATE IV PRN (01:10)
[2020-10-07] MEDS ORDERED: NS 250ML 250 ML ONE (03:53)
[2020-10-07] MEDS ORDERED: VANCOMYCIN HCL 1 GM ONE (03:53)
--- NOTE | 2020-10-07 04:00 | NUR ---
PT STATUS THIS NURSE CALLED DR MORRELL DUE TO PT GROWING INCREASINGLY CONFUSED. STATEMENTS MADE BY PATIENT ARE NOT MAKING SENSE. PT IS ORIENTED TO PERSON, TIME, PLACE HOWEVER UNABLE TO COMPLETE SENTENCES. PT SPEAKING SLURRED AND GARBLED. RECEIVED ORDERS TO DC IV ZOSYN AND START IV VANCOMYCIN 1GRAM Q12 @175mL/hr AND MEROPENEM Q8 100mL/hr. Addendum: 10/07/20 at 1903 by JACKIE LIANG LVN LVN (JESUSITA) THIS NURSE CALLED DR MORRELL DUE TO PT GROWING INCREASINGLY CONFUSED. STATEMENTS MADE BY PATIENT ARE NOT MAKING SENSE. PT IS ORIENTED TO PERSON, TIME, PLACE HOWEVER UNABLE TO COMPLETE SENTENCES. PT SPEAKING SLURRED AND GARBLED. RECEIVED ORDERS TO DC IV ZOSYN AND START IV VANCOMYCIN 1GRAM Q12 @175mL/hr AND MEROPENEM Q8 100mL/hr AND BLOOD CULTURES X2.
[2020-10-07] MEDS: VANCOMYCIN HCL 1 GM in NS 250ML 250 ML IV SCH ×2 (04:06→16:07)
[2020-10-07] MEDS: NS 1000ML 1,000 ML IV SCH (04:06)
[2020-10-07 04:09] LABS: CALCIUM 8.5 mg/dL (8.4-10.5); CARBON DIOXIDE 24.5 mmol/L (20.0-32)
[2020-10-07] MEDS: MERREM 500 MG in NS 100ML 100 ML IV SCH ×3 (07:05→23:04)
[2020-10-07] MEDS: ASPIRIN EC PO SCH (08:32)
[2020-10-07] MEDS: COLACE PO SCH ×2 (08:32→21:08)
[2020-10-07] MEDS: PLAVIX PO SCH (08:32)
[2020-10-07] MEDS: PEPCID IV SCH ×2 (08:32→21:08)
--- NOTE | 2020-10-07 09:28 | PRM.PN ---
PROGRESS NOTE S/O/A/P DATE: 10/07/20 TIME: 8:30am SUBJECTIVE: Patient seen and examined at bedside. Chart was reviewed. RN reports that Patient remained confused overnight and was climbing out of bed / pulling out his lines. Now requiring a 1:1 bedside sitter. Patient was still intermittently bradycardic (20-30's) requiring Atropine, and hypotensive (80/40's) requiring IVF boluses overnight. Now much improved and doing better at this time. Patient voices no new complaints and denies having any RAMIREZ, visual disturbances, chest pain, palpitations, SOB, abdominal pain, NVD, or focal neurological deficits. OBJECTIVE: PHYSICAL EXAMINATION: VITAL SIGNS: T 97.9, HR 42, RR 11, BP 141/71, O2 sat 98% RA GENERAL: Resting comfortably in NAD. 1:1 Sitter currently present at bedside. HEENT: NC/AT. PERRLA. EOMI. MMM. Neck is supple. LUNGS: CTAB. No wheezing, rales, or rhonchi. No sign of respiratory distress or cyanosis. HEART: Heart sounds muffled and distant due to large body habitus. ABDOMEN: Soft. NTTP. Normal BS throughout. Pt is obese. Right Groin without bleeding or hematoma. EXTREMITIES: Trace pedal edema BL. Moving all 4 extremities equally and completely off the bed. NEUROLOGIC: No motor or sensory deficits noted. CN II-XII grossly intact. FTN / HTS / RAHM intact BL. Gait was not assessed at this time. LABORATORY DATA: Reviewed and significant for Hgb 11.4, BUN 25, Cr 1.41, Gluc 125 IMAGING STUDIES: No new studies today. ASSESSMENT / PLAN: 1) Acute STEMI: s/p LHC yesterday by Dr Sauer which showed an "acute thrombotic occlusion of the very distal right posterior descending artery, which is an extremely small caliber vessel measuring 0.5mm in its diameter. This is unamenable to stenting or balloon angioplasty given the very small size of the vessel. Medical management is therefore recommended." Will continue ASA, Plavix and Atorvastatin for now. Pt will require close outpatient follow up with Dr To in clinic. 2) UTI with Sepsis: s/p Recent Cystoscopy [employer]. Zosyn was DC'd overnight and Merrem / Vanc was initiated. Will follow up on all final culture results. 3) Bradycardia: Will monitor and continue Atropine PRN. Will check a TSH level and follow up on the Echo results. 4) Hypotension: Pt is not in shock. Improved with IVFs overnight. Monitor closely. 5) Delirium: Will monitor and provide supportive care PRN. Continue with 1:1 bedside sitter for now. 6) Acute Renal Failure: Cr 1.41 today. Suspect due to contrast from [facility] as well as hypotensive episodes overnight. Monitor closely. 7) Elevated proBNP: Will follow up on the Echo results. 8) Hyperglycemia: Will check a HgbA1c. 9) GI and DVT prophylaxis: Will continue Pepcid and SCDs. Heparin Drip was just DC'd by Cardiology. DEE DEE DONAHUE MD Oct 07, 2020 09:28
[2020-10-07] MEDS ORDERED: ATROPINE SULFATE IV STA (11:09)
--- NOTE | 2020-10-07 11:10 | NUR ---
ATROPINE 0.5MG OF IV ATROPINE ADMINISTERED BY PURVI MARTINEZ AT THIS TIME FOR HEART RATE OF 39. ORDERS RECEIVED BY . PATIENT IS NOT SYMPTOMATIC AT THIS TIME, RESTING IN THE CHAIR. WILL CONTINUE WITH PLAN OF CARE.
[2020-10-07] MEDS: LIPITOR PO SCH (21:08)
[2020-10-07 21:36] LABS: BASOPHIL % 0.4 % (0.0-0.2); EOSINOPHIL # 0.2 10^3/uL (0.0-0.2); EOSINOPHIL % 2.2 % (0.0-5.0); LYMPHOCYTES # 1.19 10^3/uL1 (1.0-4.8); LYMPHOCYTES % 11.3 % (24.0-44.0); MEAN CORP HGB 30.3 pg (26-34); MONOCYTES % 9.6 % (5.0-12.0); NEUTROPHIL # 8.1 10^3/uL (1.8-7.7); NEUTROPHILS % 76.5 % (41.0-85.0); PLATELET COUNT 190 10^3/uL (150-400); RED CELL DISTRIBUTION WIDTH 14.4 % (11.5-14.5)
[2020-10-08] VITALS (41 sets, daily range): BP systolic 113–171; BP diastolic 45–106
[2020-10-08] MEDS: NS 1000ML 1,000 ML IV SCH (04:20)
[2020-10-08] MEDS: VANCOMYCIN HCL 1 GM in NS 250ML 250 ML IV SCH ×2 (04:32→16:45)
[2020-10-08 06:03] LABS: BASOPHIL # 0.1 10^3/uL (0.0-0.1); BASOPHIL % 0.5 % (0.0-0.2); EOSINOPHIL # 0.3 10^3/uL (0.0-0.2); EOSINOPHIL % 2.6 % (0.0-5.0); LYMPHOCYTES # 1.21 10^3/uL1 (1.0-4.8); LYMPHOCYTES % 11.2 % (24.0-44.0); MEAN CORP HGB 29.9 pg (26-34); MONOCYTES % 8.8 % (5.0-12.0); NEUTROPHIL # 8.4 10^3/uL (1.8-7.7); NEUTROPHILS % 76.9 % (41.0-85.0); PLATELET COUNT 191 10^3/uL (150-400); RED CELL DISTRIBUTION WIDTH 14.5 % (11.5-14.5)
[2020-10-08 06:29] LABS: CARBON DIOXIDE 24.4 mmol/L (20.0-32)
[2020-10-08] MEDS: MERREM 500 MG in NS 100ML 100 ML IV SCH ×3 (06:50→21:45)
[2020-10-08] MEDS: PLAVIX PO SCH (09:49)
[2020-10-08] MEDS: COLACE PO SCH ×2 (09:49→21:45)
[2020-10-08] MEDS: PEPCID IV SCH ×2 (09:49→21:45)
[2020-10-08] MEDS: ASPIRIN EC PO SCH (09:49)
--- NOTE | 2020-10-08 16:10 | PRM.PN ---
PROGRESS NOTE SUBJECTIVE Feeling better no weakness slept well last night tolerating p.o. 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 OBJECTIVE Vital Signs Date Time Temp Pulse Resp B/P (MAP) Pulse Ox O2 Delivery O2 Flow Rate FiO2 10/08/20 13:45 44 19 154/89 (110) 98 10/08/20 13:32 48 18 97 10/08/20 13:31 48 20 158/76 (103) 97 10/08/20 13:17 58 24 95 10/08/20 13:01 43 20 164/106 (125) 97 10/08/20 13:00 Room Air 2.00 10/08/20 12:31 47 12 127/67 (87) 96 10/08/20 12:15 39 21 156/75 (102) 98 10/08/20 12:02 44 32 139/86 (103) 97 10/08/20 11:45 45 17 126/56 (79) 98 10/08/20 11:32 46 20 98 10/08/20 10:47 49 15 135/66 (89) 99 10/08/20 10:31 52 14 131/65 (87) 97 10/08/20 10:16 50 31 133/58 (83) 99 10/08/20 10:02 51 18 141/72 (95) 98 10/08/20 09:46 47 15 142/65 (90) 98 10/08/20 09:31 43 11 151/93 (112) 99 10/08/20 09:16 53 17 141/68 (92) 97 10/08/20 09:00 48 16 97 Nasal Cannula 2.00 10/08/20 09:00 58 16 130/87 (101) 97 10/08/20 08:48 50 24 137/68 (91) 97 10/08/20 08:31 53 13 150/88 (108) 92 10/08/20 08:00 Room Air 2.00 General: Patient is awake alert oriented not in distress HEENT: Anicteric sclera mucous membrane is moist neck supple no JVD no carotid bruit Lungs: Air entry symmetrical no added sound heard Heart: S1-S2 heard regular rate and rhythm bradycardic no murmur gallop appreciated Abdomen: Obese nontender bowel sounds present no masses organomegaly noted Extremities: No edema no calf tenderness 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 no acute distress moves all 4 limbs muscle power 5/5 in all 4 limbs cranial nerves grossly intact Psych: Normal insight normal mood Laboratory Tests Test 10/05/20 20:44 10/06/20 01:15 10/06/20 05:30 10/06/20 05:52 White Blood Count 9.4 10^3/uL (4.5-11.0) 9.7 10^3/uL (4.5-11.0) Red Blood Count 3.68 10^6/uL (4.50-5.90) 3.80 10^6/uL (4.50-5.90) Hemoglobin 11.3 g/dL (13.9-16.3) 11.5 g/dL (13.9-16.3) Hematocrit 34.2 % (37.0-53.0) 35.1 % (37.0-53.0) Mean Corpuscular Volume 92.9 fL (78-100) 92.4 fL (78-100) Mean Corpuscular Hemoglobin 30.7 pg (26-34) 30.3 pg (26-34) Mean Corpuscular Hemoglobin Concent 33.0 g/dL (33-36.5) 32.8 g/dL (33-36.5) Red Cell Distribution Width 14.4 % (11.5-14.5) 14.5 % (11.5-14.5) Platelet Count 138 10^3/uL (150-400) 148 10^3/uL (150-400) Mean Platelet Volume 11.4 fL (7.8-11.0) 11.5 fL (7.8-11.0) Neutrophils (%) (Auto) 75.4 % (41.0-85.0) 90.3 % (41.0-85.0) Lymphocytes (%) (Auto) 13.4 % (24.0-44.0) 5.7 % (24.0-44.0) Monocytes (%) (Auto) 6.6 % (5.0-12.0) 2.8 % (5.0-12.0) Neutrophils # (Auto) 7.1 10^3/uL (1.8-7.7) 8.7 10^3/uL (1.8-7.7) Lymphocytes # (Auto) 1.25 10^3/uL1 (1.0-4.8) 0.55 10^3/uL1 (1.0-4.8) Monocytes # (Auto) 0.6 10^3/uL (0.3-0.8) 0.3 10^3/uL (0.3-0.8) Absolute Immature Granulocyte (auto 0.06 10^3 u/L (0-2) 0.05 10^3 u/L (0-2) Absolute Eosinophils (auto) 0.4 10^3/uL (0.0-0.2) 0.1 10^3/uL (0.0-0.2) Immature Granulocytes % 0.60 % (0.00-0.50) 0.50 % (0.00-0.50) Eosinophils % 4.1 % (0.0-5.0) 1.0 % (0.0-5.0) Basophils % 0.5 % (0.0-0.2) 0.2 % (0.0-0.2) Basophils # 0.1 10^3/uL (0.0-0.1) 0.0 10^3/uL (0.0-0.1) Prothrombin Time 10.7 SEC (9.6-12.0) Prothrombin Time INR (Non-Therap) 1.0 Activated Partial Thromboplast Time 27.4 SEC (24.67-30.72) 35.8 SEC (24.67-30.72) Sodium Level 140 mmol/L (132-145) 141 mmol/L (132-145) Potassium Level 4.1 mmol/L (3.6-5.2) 3.9 mmol/L (3.6-5.2) Chloride Level 108.0 mmol/L (96-109) 108.0 mmol/L (96-109) Carbon Dioxide Level 24.0 mmol/L (20.0-32) 23.8 mmol/L (20.0-32) Anion Gap 12.1 13.1 Blood Urea Nitrogen 23 mg/dL (7-18) 21 mg/dL (7-18) Creatinine 1.29 mg/dL (0.59-1.40) 1.19 mg/dL (0.59-1.40) Estimated GFR () 65.2 (>/=60) 71.5 (>/=60) Est GFR (CKD-EPI)(Non-Afr [place]ian) 53.9 (>/=60) 59.1 (>/=60) BUN/Creatinine Ratio 17.0 17.0 Glucose Level 124 mg/dL (70-110) 139 mg/dL (70-110) Calcium Level 8.4 mg/dL (8.4-10.5) 8.7 mg/dL (8.4-10.5) Total Bilirubin 0.6 mg/dL (0.2-1.0) 0.6 mg/dL (0.2-1.0) Aspartate Amino Transf (AST/SGOT) 43 U/L (0-35) 38 U/L (0-35) Alanine Aminotransferase (ALT/SGPT) 34 U/L (12-78) 36 U/L (12-78) Alkaline Phosphatase 74 U/L (50-136) 74 U/L (50-136) Troponin I 1.63 ng/mL (0.00-0.05) 1.33 ng/mL (0.00-0.05) Pro-B-Type Natriuretic Peptide 1424 pg/mL (0-450) Total Protein 6.2 g/dL (6.4-8.2) 6.4 g/dL (6.4-8.2) Albumin 2.9 g/dL (3.4-5.0) 3.0 g/dL (3.4-5.0) Globulin 3.3 3.4 Albumin/Globulin Ratio 0.878 0.882 Total Creatine Kinase 195 U/L (39-308) 191 U/L (39-308) Creatine Kinase MB 1.6 ng/mL (0.5-3.6) 1.7 ng/mL (0.5-3.6) Urine Collection Type RANDOM Urine Color YELLOW Urine Appearance CLEAR Urine Bilirubin NEGATIVE (NEGATIVE) Urine Ketones NEGATIVE (NEGATIVE) Urine Specific [place] 1.010 (1.005-1.030) Urine pH 6.5 (4.5-8.0) Urine Protein NEGATIVE (NEGATIVE) Urine Urobilinogen 0.2 E.U./dL (0.2) Urine Nitrate NEGATIVE (NEGATIVE) Urine Leukocyte Esterase MODERATE (NEGATIVE) Urine Glucose (Auto)(UA) NEGATIVE (NEGATIVE) Urine Blood MODERATE (NEGATIVE) Urine RBC 10-25 RBC/HPF (NONE SEEN) Urine WBC 10-25 WBC/HPF (0-2) Urine Bacteria FEW (NONE SEEN) Test 10/06/20 06:37 10/06/20 08:05 10/06/20 12:15 10/06/20 17:58 Segmented Neutrophils 94 % (31-76) Lymphocytes 2 % (25-36) Monocytes 2 % (3-9) Absolute Eosinophils (Manual) 1 % (1-4) Basophils 1 % (0-2) Platelet Estimate SLIGHTLY DECREASED Platelet Morphology NORMAL Activated Partial Thromboplast Time 30.8 SEC (24.67-30.72) 30.9 SEC (24.67-30.72) 30.0 SEC (24.67-30.72) Total Creatine Kinase 169 U/L (39-308) 142 U/L (39-308) Creatine Kinase MB 1.5 ng/mL (0.5-3.6) 1.3 ng/mL (0.5-3.6) Test 10/06/20 21:55 10/07/20 03:10 10/07/20 21:21 10/08/20 05:36 White Blood Count 10.4 10^3/uL (4.5-11.0) 10.5 10^3/uL (4.5-11.0) 10.8 10^3/uL (4.5-11.0) Red Blood Count 3.88 10^6/uL (4.50-5.90) 3.66 10^6/uL (4.50-5.90) 3.68 10^6/uL (4.50-5.90) Hemoglobin 11.4 g/dL (13.9-16.3) 11.1 g/dL (13.9-16.3) 11.0 g/dL (13.9-16.3) Hematocrit 35.5 % (37.0-53.0) 34.1 % (37.0-53.0) 34.2 % (37.0-53.0) Mean Corpuscular Volume 91.5 fL (78-100) 93.2 fL (78-100) 92.9 fL (78-100) Mean Corpuscular Hemoglobin 29.4 pg (26-34) 30.3 pg (26-34) 29.9 pg (26-34) Mean Corpuscular Hemoglobin Concent 32.1 g/dL (33-36.5) 32.6 g/dL (33-36.5) 32.2 g/dL (33-36.5) Red Cell Distribution Width 14.4 % (11.5-14.5) 14.4 % (11.5-14.5) 14.5 % (11.5-14.5) Platelet Count 164 10^3/uL (150-400) 190 10^3/uL (150-400) 191 10^3/uL (150-400) Mean Platelet Volume 11.2 fL (7.8-11.0) 11.2 fL (7.8-11.0) 11.2 fL (7.8-11.0) Neutrophils (%) (Auto) 83.8 % (41.0-85.0) 76.5 % (41.0-85.0) 76.9 % (41.0-85.0) Lymphocytes (%) (Auto) 7.1 % (24.0-44.0) 11.3 % (24.0-44.0) 11.2 % (24.0-44.0) Monocytes (%) (Auto) 8.0 % (5.0-12.0) 9.6 % (5.0-12.0) 8.8 % (5.0-12.0) Neutrophils # (Auto) 8.7 10^3/uL (1.8-7.7) 8.1 10^3/uL (1.8-7.7) 8.4 10^3/uL (1.8-7.7) Lymphocytes # (Auto) 0.74 10^3/uL1 (1.0-4.8) 1.19 10^3/uL1 (1.0-4.8) 1.21 10^3/uL1 (1.0-4.8) Monocytes # (Auto) 0.8 10^3/uL (0.3-0.8) 1.0 10^3/uL (0.3-0.8) 1.0 10^3/uL (0.3-0.8) Absolute Immature Granulocyte (auto 0.10 10^3 u/L (0-2) 0.17 10^3 u/L (0-2) 0.17 10^3 u/L (0-2) Absolute Eosinophils (auto) 0.0 10^3/uL (0.0-0.2) 0.2 10^3/uL (0.0-0.2) 0.3 10^3/uL (0.0-0.2) Immature Granulocytes % 1.00 % (0.00-0.50) 1.60 % (0.00-0.50) 1.60 % (0.00-0.50) Eosinophils % 0.0 % (0.0-5.0) 2.2 % (0.0-5.0) 2.6 % (0.0-5.0) Basophils % 0.1 % (0.0-0.2) 0.4 % (0.0-0.2) 0.5 % (0.0-0.2) Basophils # 0.0 10^3/uL (0.0-0.1) 0.0 10^3/uL (0.0-0.1) 0.1 10^3/uL (0.0-0.1) Sodium Level 141 mmol/L (132-145) 143 mmol/L (132-145) Potassium Level 4.1 mmol/L (3.6-5.2) 3.8 mmol/L (3.6-5.2) Chloride Level 106.0 mmol/L (96-109) 109.0 mmol/L (96-109) Carbon Dioxide Level 24.5 mmol/L (20.0-32) 24.4 mmol/L (20.0-32) Anion Gap 14.6 13.4 Blood Urea Nitrogen 25 mg/dL (7-18) 19 mg/dL (7-18) Creatinine 1.41 mg/dL (0.59-1.40) 1.19 mg/dL (0.59-1.40) Estimated GFR () 58.8 (>/=60) 71.5 (>/=60) Est GFR (CKD-EPI)(Non-Afr [place]ian) 48.6 (>/=60) 59.1 (>/=60) BUN/Creatinine Ratio 17.0 15.0 Glucose Level 125 mg/dL (70-110) 104 mg/dL (70-110) Calcium Level 8.5 mg/dL (8.4-10.5) 8.0 mg/dL (8.4-10.5) Total Bilirubin 0.5 mg/dL (0.2-1.0) 0.5 mg/dL (0.2-1.0) Aspartate Amino Transf (AST/SGOT) 26 U/L (0-35) 31 U/L (0-35) Alanine Aminotransferase (ALT/SGPT) 35 U/L (12-78) 35 U/L (12-78) Alkaline Phosphatase 66 U/L (50-136) 69 U/L (50-136) Total Protein 6.5 g/dL (6.4-8.2) 6.2 g/dL (6.4-8.2) Albumin 3.0 g/dL (3.4-5.0) 2.9 g/dL (3.4-5.0) Globulin 3.5 3.3 Albumin/Globulin Ratio 0.857 0.878 D-Dimer 2.77 mg/L (0.19-0.49) Hemoglobin A1c 6.7 % (0-5.7) Phosphorus Level 3.2 mg/dL (2.5-4.9) Magnesium Level 2.1 mg/dL (1.8-2.4) Pro-B-Type Natriuretic Peptide 1720 pg/mL (0-450) Procalcitonin 2.09 ng/mL (0.05-0.5) Thyroid Stimulating Hormone (TSH) 2.431 mIU/mL (0.358-3.740) ASSESSMENT 1. Non-ST elevation PR s/p coronary angiogram and occlusion of distal right coronary artery , Not amenable to intervention recommended medical treatment by shotblast operator 2.UTI currently on Merrem 3. Bradycardia patient was asymptomatic but the heart rate was below 40/min for last 24 hours the rate has improved, TSH level was within normal range, Will continue to monitor,Follow shotblast operator recommendation 4. Hypotension improved 5. Transient delirium improved 6.Renal failure suspect stage II 7. Hyperglycemia #8 GI and DVT prophylaxis PLAN Continue current management, transfer the patient out of ICU start physical therapy and if patient remained asymptomatic and heart rate remained above 40 we will consider discharging patient if cleared by shotblast operator in a.m. AVERY GOINS MD Oct 08, 2020 16:10
--- NOTE | 2020-10-08 18:00 | NUR ---
TRANSFER TRANSFERRED TO [facility] / [facility]. REPORT GIVEN TO SHARI LOJA
--- NOTE | 2020-10-08 18:00 | NUR ---
DISCHARGE PLANNING: PT LIVES HOME WITH SPOUSE IN [place]. PT WAS PREVIOUSLY INDEPENDENT ON ALD'S. PT DID NOT USE ANY DME TO ASSIST WITH AMBULATION. PT MAY NEED HOME O2 AT DISCHARGE. CM/SS WILL CONTINUE TO FOLLOW AND ASSIST WITH DISCHARGE PLANNING NEEDS.
[2020-10-08 21:16] LABS: BASOPHIL # 0.1 10^3/uL (0.0-0.1); BASOPHIL % 0.4 % (0.0-0.2); EOSINOPHIL # 0.4 10^3/uL (0.0-0.2); EOSINOPHIL % 3.8 % (0.0-5.0); LYMPHOCYTES # 1.55 10^3/uL1 (1.0-4.8); LYMPHOCYTES % 13.5 % (24.0-44.0); MEAN CORP HGB 29.7 pg (26-34); MONOCYTES # 0.9 10^3/uL (0.3-0.8); MONOCYTES % 7.5 % (5.0-12.0); NEUTROPHIL # 8.4 10^3/uL (1.8-7.7); NEUTROPHILS % 72.7 % (41.0-85.0); PLATELET COUNT 211 10^3/uL (150-400); RED CELL DISTRIBUTION WIDTH 14.5 % (11.5-14.5)
[2020-10-08] MEDS ORDERED: COLACE PO ONE (21:38)
[2020-10-08] MEDS ORDERED: PEPCID IV ONE (21:38)
[2020-10-08] MEDS ORDERED: LIPITOR ONE (21:38)
[2020-10-08] MEDS: LIPITOR PO SCH (21:45)
[2020-10-09 00:16] VITALS: BP 154/76
[2020-10-09] MEDS: NS 1000ML 1,000 ML IV SCH (04:30)
[2020-10-09] MEDS: VANCOMYCIN HCL 1 GM in NS 250ML 250 ML IV SCH (04:30)
[2020-10-09 05:39] VITALS: BP 132/55
[2020-10-09] MEDS: MERREM 500 MG in NS 100ML 100 ML IV SCH (06:06)
--- NOTE | 2020-10-09 07:00 | NUR ---
REPORT RECEIVED REPORT AND ASSUMED CARE OF PT.
[2020-10-09 08:28] VITALS: BP 154/58
[2020-10-09] MEDS: PEPCID IV SCH (10:07)
[2020-10-09] MEDS: COLACE PO SCH (10:08)
[2020-10-09] MEDS: ASPIRIN EC PO SCH (10:08)
[2020-10-09] MEDS: PLAVIX PO SCH (10:08)
[2020-10-09 11:52] VITALS: BP 160/74
[2020-10-09] MEDS ORDERED: ZYVOX PO SCH (14:30)
[2020-10-09] MEDS ORDERED: ASPI-929 PO (14:43)
[2020-10-09] MEDS ORDERED: NITR12SP TL (14:43)
[2020-10-09] MEDS ORDERED: ATOR40TA PO (14:43)
[2020-10-09] MEDS ORDERED: LINE600T12 PO (14:43)
[2020-10-09] MEDS ORDERED: DOCU-15 PO (14:43)
[2020-10-09] MEDS ORDERED: CLOP75TA PO (14:43)
[2020-10-09] MEDS ORDERED: FINA5TAB PO (14:43)
--- NOTE | 2020-10-09 14:54 | PRM.DC ---
Subjective Subjective Date of Discharge: Oct 09, 2020 Time of Request to Discharge: 04:00 Subjective Feeling better no chest pain tolerating p.o. intake well had bowel movement yesterday 80-year-old male With a history of Hypertension BPH recently underwent cystoscopy for evaluation of prostate and subsequently patient developed sepsis was admitted to the local hospital, While he was being treated he developed c hest pain and elevated troponin therefore patient was transferred to this facility subsequently patient underwent coronary angiogram that showed distal right coronary artery thrombosis not amenable by intervention therefore sports medicine specialist recommended medical treatment, patient also was empirically treated with vancomycin and Merrem during this hospitalization while waiting for urine culture report and And during the hospitalization patient was with Valderrama catheter, final urine culture was reported as VRE and patient was started on Zyvox p.o. and Valderrama catheter was removed and post Void residual was reported as 50 cc per and patient remained asymptomatic and he will be discharged home today with oral Zyvox for 7 more days and dual antiplatelet therapy and low-dose calcium channel farhad, Norvasc for blood pressure control and patient was advised to follow-up with PCP and sports medicine specialist as instructed During the hospital stay immediately after the coronary angiogram patient had significant bradycardia that was treated with anticholinergic therapy and patient heart rate remained below 60 considering this difficulty patient was not started on any beta-farhad at this time and advised to follow-up with sports medicine specialist to consider as outpatient, BERNARDA inhibitor also was not started considering his creatinine changes but advised the patient to discuss with sports medicine specialist to consider starting on BERNARDA inhibitor or ARB once the creatinine stabilized Exam Vital Signs Vital Signs Date Time Temp Pulse Resp B/P (MAP) Pulse Ox O2 Delivery O2 Flow Rate FiO2 10/09/20 11:52 98.3 57 17 160/74 (102) 97 10/09/20 10:30 Room Air 10/09/20 08:42 21 10/09/20 00:16 2.00 General Appearance: Alert, Oriented X3, Cooperative, No acute distress HEENT: Atraumatic, PERRLA, EOMI, Mucous membr. moist/pink Respiratory: Clear to auscultation, Normal air movement Cardiovascular: Regular rate, Normal S1, Normal S2, Other (Bradycardia) Abdominal: Normal bowel sounds, Soft, No tenderness, No hepatospenomegaly Extremities: No clubbing, No cyanosis, No edema Neuro: Normal gait, Normal speech, Strength at 5/5 X4 ext Psych/Mental Status: Mental status NL, Mood NL VTE VTE Risk Total Score: 3 VTE Risk Score VTE Risk: Score 0-1 = Low Risk (Aggressive mobilization; early ambulation; no VTE prophylaxis required) Score 2: Moderate Risk (Intermittent/Pneumatic Compression Device OR Lovenox/Heparin/Coumadin) Score 3-4: High Risk (Intermittent/Pneumatic Compression Device AND Lovenox/Heparin/Coumadin) Score > or =5: Highest Risk (Intermittent/Pneumatic Compression Device AND Lovenox/Heparin/Coumadin) Antico:Hep/LMWH/Coum/Xarelto: Yes Mechanical device ordered: Yes Objective Vitals and I/O Vital Sign - Last 24 Hours 10/08/20 10/08/20 10/08/20 10/08/20 14:45 14:50 15:00 15:15 Pulse 51 48 43 42 Resp 17 13 18 B/P (MAP) 163/92 (115) 152/92 (112) 148/77 (100) 171/77 (108) Pulse Ox 97 98 10/08/20 10/08/20 10/08/20 10/08/20 15:30 15:45 16:00 16:00 Pulse 41 41 45 Resp 17 17 17 B/P (MAP) 168/75 (106) 128/62 (84) 121/67 (85) Pulse Ox 88 O2 Delivery Room Air O2 Flow Rate 2.00 10/08/20 10/08/20 10/09/20 10/09/20 16:15 16:52 00:16 05:39 Temp 97.8 98.3 Pulse 43 43 50 44 Resp 10 16 14 14 B/P (MAP) 149/61 (90) 154/76 (102) 132/55 (80) Pulse Ox 94 94 96 91 O2 Delivery Nasal Cannula Nasal Canula Nasal Canula O2 Flow Rate 2.00 2.00 10/09/20 10/09/20 10/09/20 10/09/20 08:28 08:42 08:43 10:30 Temp 98.3 Pulse 42 57 Resp 18 16 16 B/P (MAP) 154/58 (90) Pulse Ox 96 88 88 O2 Delivery Room Air FiO2 21 10/09/20 11:52 Temp 98.3 Pulse 57 Resp 17 B/P (MAP) 160/74 (102) Pulse Ox 97 Intake and Output 10/09/20 07:00 Intake Total 1482 ml Output Total 2475 ml Balance -993 ml General: Alert, Oriented X3, Other (Lethargic) HEENT: Atraumatic, PERRLA Neck: Supple Lungs: Clear to auscultation, Other Heart: Regular rate, Normal S1, Normal S2, Other (Bradycardic) Abdomen: Normal bowel sounds, Soft, No tenderness Extremities: No clubbing, No cyanosis Skin: No rashes Neuro: Normal speech, Normal tone Psych/Mental Status: Mental status NL, Mood NL All Results(Lab/Rad) Laboratory Tests Test 10/05/20 20:44 10/06/20 01:15 10/06/20 05:30 10/06/20 05:52 White Blood Count 9.4 10^3/uL 9.7 10^3/uL Red Blood Count 3.68 10^6/uL 3.80 10^6/uL Hemoglobin 11.3 g/dL 11.5 g/dL Hematocrit 34.2 % 35.1 % Mean Corpuscular Volume 92.9 fL 92.4 fL Mean Corpuscular Hemoglobin 30.7 pg 30.3 pg Mean Corpuscular Hemoglobin Concent 33.0 g/dL 32.8 g/dL Red Cell Distribution Width 14.4 % 14.5 % Platelet Count 138 10^3/uL 148 10^3/uL Mean Platelet Volume 11.4 fL 11.5 fL Neutrophils (%) (Auto) 75.4 % 90.3 % Lymphocytes (%) (Auto) 13.4 % 5.7 % Monocytes (%) (Auto) 6.6 % 2.8 % Neutrophils # (Auto) 7.1 10^3/uL 8.7 10^3/uL Lymphocytes # (Auto) 1.25 10^3/uL1 0.55 10^3/uL1 Monocytes # (Auto) 0.6 10^3/uL 0.3 10^3/uL Absolute Immature Granulocyte (auto 0.06 10^3 u/L 0.05 10^3 u/L Absolute Eosinophils (auto) 0.4 10^3/uL 0.1 10^3/uL Immature Granulocytes % 0.60 % 0.50 % Eosinophils % 4.1 % 1.0 % Basophils % 0.5 % 0.2 % Basophils # 0.1 10^3/uL 0.0 10^3/uL Prothrombin Time 10.7 SEC Prothrombin Time INR (Non-Therap) 1.0 Activated Partial Thromboplast Time 27.4 SEC 35.8 SEC Sodium Level 140 mmol/L 141 mmol/L Potassium Level 4.1 mmol/L 3.9 mmol/L Chloride Level 108.0 mmol/L 108.0 mmol/L Carbon Dioxide Level 24.0 mmol/L 23.8 mmol/L Anion Gap 12.1 13.1 Blood Urea Nitrogen 23 mg/dL 21 mg/dL Creatinine 1.29 mg/dL 1.19 mg/dL Estimated GFR () 65.2 71.5 Est GFR (CKD-EPI)(Non-Afr [place]) 53.9 59.1 BUN/Creatinine Ratio 17.0 17.0 Glucose Level 124 mg/dL 139 mg/dL Calcium Level 8.4 mg/dL 8.7 mg/dL Total Bilirubin 0.6 mg/dL 0.6 mg/dL Aspartate Amino Transf (AST/SGOT) 43 U/L 38 U/L Alanine Aminotransferase (ALT/SGPT) 34 U/L 36 U/L Alkaline Phosphatase 74 U/L 74 U/L Troponin I 1.63 ng/mL 1.33 ng/mL Pro-B-Type Natriuretic Peptide 1424 pg/mL Total Protein 6.2 g/dL 6.4 g/dL Albumin 2.9 g/dL 3.0 g/dL Globulin 3.3 3.4 Albumin/Globulin Ratio 0.878 0.882 Total Creatine Kinase 195 U/L 191 U/L Creatine Kinase MB 1.6 ng/mL 1.7 ng/mL Urine Collection Type RANDOM Urine Color YELLOW Urine Appearance CLEAR Urine Bilirubin NEGATIVE Urine Ketones NEGATIVE Urine Specific [place] 1.010 Urine pH 6.5 Urine Protein NEGATIVE Urine Urobilinogen 0.2 E.U./dL Urine Nitrate NEGATIVE Urine Leukocyte Esterase MODERATE Urine Glucose (Auto)(UA) NEGATIVE Urine Blood MODERATE Urine RBC 10-25 RBC/HPF Urine WBC 10-25 WBC/HPF Urine Bacteria FEW Test 10/06/20 06:37 10/06/20 08:05 Segmented Neutrophils 94 % Lymphocytes 2 % Monocytes 2 % Absolute Eosinophils (Manual) 1 % Basophils 1 % Platelet Estimate SLIGHTLY DECREASED Platelet Morphology NORMAL Activated Partial Thromboplast Time 30.8 SEC Total Creatine Kinase 169 U/L Creatine Kinase MB 1.5 ng/mL Current Medications Medications (Trade) Dose Ordered Sig/Jhon Route PRN Reason Start Time Stop Time Status Last Admin Dose Admin Heparin Sodium (Porcine) (Heparin) 5,000 unit OT ONCE IV 10/05/20 20:30 10/05/20 20:48 DC 10/05/20 21:56 Heparin Sodium/ Dextrose 500 ml @ 0 mls/hr TITRATE IV 10/05/20 20:30 10/05/20 23:35 DC 10/05/20 21:55 Nitroglycerin (Nitrolingual) 1 sprays Q5M PRN TL CHEST PAIN 10/05/20 20:30 11/04/20 20:29 Aspirin (Aspirin Ec) 325 mg DAILY PO 10/06/20 09:00 10/06/20 03:33 DC Atorvastatin Calcium (Lipitor) 80 mg HS PO 10/05/20 21:00 11/04/20 20:59 10/05/20 21:56 Docusate Sodium (Colace) 100 mg BID PO 10/05/20 21:00 11/04/20 20:59 Acetaminophen (Tylenol) 1,000 mg Q6H PRN PO PAIN 1 - 3 10/05/20 20:30 11/04/20 20:29 Acetaminophen/ Hydrocodone Bitart ([place] 5mg) 1 ea Q6 PRN PO PAIN 4 - 6 10/05/20 20:30 11/04/20 20:29 Atropine Sulfate (Atropine Sulfate) 1 mg PRN PRN IV HR<45/min 10/05/20 20:30 11/04/20 20:29 Piperacillin Sod/ Tazobactam Sod 3.375 gm/Sodium Chloride 100 ml @ 100 mls/hr Q6H IV 10/05/20 21:30 11/04/20 21:29 10/06/20 09:30 Famotidine (Pepcid) 20 mg BID IV 10/06/20 09:00 11/05/20 08:59 10/06/20 09:47 Sodium Chloride 100 ml @ ud STK-MED ONCE IV 10/05/20 22:07 10/05/20 22:07 DC Sodium Chloride 500 ml @ ud STK-MED ONCE IV 10/05/20 22:08 10/05/20 22:08 DC Heparin Sodium (Porcine) (Heparin) 5,000 unit OT ONCE IV 10/05/20 23:00 10/05/20 23:34 DC Heparin Sodium/ Dextrose 500 ml @ 0 mls/hr TITRATE IV 10/05/20 23:00 11/04/20 22:59 Heparin Sodium/ Sodium Chloride 1,500 ml @ ud STK-MED ONCE IV 10/06/20 01:37 10/06/20 01:38 DC Heparin Sodium (Porcine) (Heparin) 5,000 unit STK-MED ONCE .ROUTE 10/06/20 01:37 10/06/20 01:38 DC Fentanyl Citrate (Sublimaze) 50 mcg STK-MED ONCE .ROUTE 10/06/20 01:38 10/06/20 01:38 DC Lidocaine HCl (Xylocaine) 20 mg STK-MED ONCE .ROUTE 10/06/20 01:38 10/06/20 01:38 DC Sodium Chloride 1,000 ml @ ud STK-MED ONCE .ROUTE 10/06/20 02:06 10/06/20 02:06 DC Diphenhydramine HCl (Benadryl) 50 mg STK-MED ONCE .ROUTE 10/06/20 02:22 10/06/20 02:23 DC Methylprednisolone Sodium Succinate (Solu-Medrol) 125 mg STK-MED ONCE .ROUTE 10/06/20 02:27 10/06/20 02:27 DC Famotidine (Pepcid) 20 mg STK-MED ONCE .ROUTE 10/06/20 02:38 10/06/20 02:38 DC Hydralazine HCl (Apresoline) 20 mg STK-MED ONCE .ROUTE 10/06/20 02:39 10/06/20 02:40 DC Naloxone HCl (Narcan) 0.4 mg STK-MED ONCE .ROUTE 10/06/20 02:41 10/06/20 02:41 DC Flumazenil (Romazicon) 0.1 mg STK-MED ONCE IV 10/06/20 02:42 10/06/20 02:42 DC Sodium Chloride 1,000 ml @ 30 mls/hr Q24H IV 10/06/20 03:30 11/05/20 03:29 Clopidogrel Bisulfate (Plavix) 75 mg DAILY PO 10/06/20 09:00 11/05/20 08:59 10/06/20 09:47 Aspirin (Aspirin Ec) 81 mg DAILY PO 10/06/20 09:00 11/05/20 08:59 10/06/20 09:47 Medication Reconciliation Scheduled Alfuzosin Hcl (Alfuzosin Hcl), 2 TAB PO DAILY, (Reported) Plan Assessment Acute non-STEMI 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 Hypertension Sinus bradycardia Benign prostatic hyperplasia Obesity Midrange ejection fraction recorded during ventriculogram 45 to 50% Plan Patient was advised to follow-up with PCP and financial consultant as instructed advised to lose weight and follow-up with urologist as recommended My Orders - AVERY GOINS MD Procedure Category Date Status Time Vancomycin,Trough LAB 10/08/20 Complete 16:06 Vancomycin,Trough LAB 10/10/20 Verified 03:30 Linezolid (Zyvox) PHA 10/09/20 In Process 14:30 Discharge DISCHARGE 10/09/20 Transmitted 14:25 Discharge DISCHARGE 10/09/20 Transmitted 14:36 AVERY GOINS MD Oct 09, 2020 14:54
--- NOTE | 2020-10-09 15:00 | NUR ---
EDWARD EDWARD CATHETER WAS DC'D @1200, 400ML OF CLEAR, YELLOW URINE EMPTIED. AT 1300 PT HAD AN UNMEASURED AMOUNT OF VOIDED URINE PLUS 100ML OF URINE IN URINAL. BLADDER WAS SCANNED WITH BLADDER SCANNER AND PT HAD 54ML OF RESIDUAL URINE. REPORTED TO DR. LERMA.
[2020-10-09] MEDS ORDERED: VANCOMYCIN HCL 1.25 GM in NS 250ML 250 ML IV SCH (16:00)
[2020-10-09 16:45] VITALS: BP 160/74
--- NOTE | 2020-10-09 16:45 | NUR ---
DISCHARGE PT HAS BEEN DISCHARGED. SALINE LOCK DC'D; CATHETER INTACT, SITE WITHOUT ANY REDNESS OR EDEMA. DISCHARGE INSTRUCTIONS GIVEN; PT AND FAMILY MEMBER EXPRESSED UNDERSTAND OF TEACHING; PAPERS SIGNED. PT TAKEN DOWN BY STAFF NURSE TO RIDE DOWNSTAIRS.
== END 2020-10-09 16:45 | disposition home or self-care (01) | DRG 871 ==
LOC: MS 18:47 → ICU 10-06 12:03 → MS 10-08 22:58
PROVIDERS: ADMIT Internal Medicine; ATTEND Internal Medicine
PROC: B2111ZZ Fluoroscopy of Multiple Coronary Arteries using Low Osmolar Contrast (ICD-10-PCS; 2020-10-06)
PROC: B2151ZZ Fluoroscopy of Left Heart using Low Osmolar Contrast (ICD-10-PCS; 2020-10-06)
PROC: 4A023N7 Measurement of Cardiac Sampling and Pressure, Left Heart, Percutaneous Approach (ICD-10-PCS; principal; 2020-10-06 02:00)
DX: A41.81 Sepsis due to Enterococcus (principal); I21.3 ST elevation (STEMI) myocardial infarction of unspecified site; N39.0 Urinary tract infection, site not specified; N17.9 Acute kidney failure, unspecified; Z16.21 Resistance to vancomycin; I74.9 Embolism and thrombosis of unspecified artery; R73.9 Hyperglycemia, unspecified; E66.9 Obesity, unspecified; I10 Essential (primary) hypertension; I45.10 Unspecified right bundle-branch block; N40.0 Benign prostatic hyperplasia without lower urinary tract symptoms; Z68.35 Body mass index [BMI] 35.0-35.9, adult; I95.9 Hypotension, unspecified; R00.1 Bradycardia, unspecified; R41.0 Disorientation, unspecified
CPT/HCPCS: 36415; 71045; 80053; 80202; 81001; 82550; 82553; 83036; 83735; 83880; 84100; 84145; 84443; 84484; 85025; 85379; 85610; 85730; 87040; 87086; 87186; 93005; 93306; 93458; 99152; C1760; C1769; C1887; C1894; G0378; J0360; J0461; J1200; J1644; J2250; J2543; J2930; J3010; J3370; J3490; J7030; J7040; J7050; Q9967; J2310